=== PATIENT | female | born 1975 | race American Indian/Alaskan Native ===

== ENCOUNTER 2021-07-29 16:49 | Emergency (ER) | payer SELFPAY ==
[2021-07-29 21:08] LABS: Bacteria,Urine 2+ /HPF (Negative); Bilirubin,Urine NEG (Negative); Blood,Urine LG (Negative); Color,Urine Yellow (Yellow); Mucus,Urine 2+ /HPF; Protein,Urine <15 mg/dL mg/dL (Negative)
[2021-07-29 21:10] LABS: HCG Qualitative,Urine Negative (Negative)
--- NOTE | 2021-07-29 21:38 | Emergency Department Report ---
ED General Adult HPI - General Chief complaint: Vaginal Bleeding Stated complaint: BLEEDING Time Seen by Provider: 07/29/21 20:22 Source: patient Mode of arrival: Ambulatory Limitations: No Limitations - History of Present Illness Initial comments: 46-year-old black female presents to the emergency department for evaluation of vaginal bleeding that started 3 days ago. She states that she has not had her. For 9 months, and then 3 days ago she had some abdominal pain and cramping followed by the passage of several large clots and has been having vaginal bleeding since then. She also states that she has had some intermittent nausea. She denies dizziness, fever, vaginal discharge, she states that she has a history of a tubal ligation and does not think that she is but is here for further evaluation. -: Sudden, days(s) (3) Consistency: constant Improves with: none Worsens with: none Associated Symptoms: nausea/vomiting. denies: chest pain, cough, diaphoresis, fever/chills, headaches, loss of appetite, malaise, rash, seizure, shortness of breath, syncope, weakness Treatments Prior to Arrival: none - Related Data Allergies Allergy/AdvReac Type Severity Reaction Status Date / Time Penicillins Allergy Unknown Verified 07/29/21 16:57 ED Review of Systems ROS: Stated complaint: BLEEDING Other details as noted in HPI Comment: All other systems reviewed and negative Constitutional: denies: chills, fever Eyes: denies: eye pain ENT: denies: ear pain Respiratory: denies: cough, shortness of breath Cardiovascular: denies: chest pain, palpitations, dyspnea on exertion, edema, syncope, paroxysmal nocturnal dyspnea Endocrine: no symptoms reported Gastrointestinal: nausea, vomiting. denies: abdominal pain, diarrhea, hematemesis, melena, hematochezia Genitourinary: abnormal menses. denies: urgency, dysuria, frequency, hematuria, discharge Musculoskeletal: denies: back pain, joint swelling Skin: denies: rash, lesions Neurological: denies: headache, weakness, numbness, paresthesias, confusion, abnormal gait Psychiatric: denies: anxiety Hematological/Lymphatic: denies: easy bleeding, easy bruising ED Physical Exam - General Limitations: No Limitations General appearance: in no apparent distress - Head Head exam: Present: atraumatic, normocephalic - Eye Eye exam: Present: normal appearance. Absent: conjunctival injection - Neck Neck exam: Present: normal inspection - Respiratory Respiratory exam: Present: normal lung sounds bilaterally. Absent: respiratory distress, wheezes, rales, rhonchi, chest wall tenderness, accessory muscle use - Cardiovascular Cardiovascular Exam: Present: regular rate - GI/Abdominal GI/Abdominal exam: Present: soft. Absent: distended, tenderness, guarding, rebound, rigid, normal bowel sounds - Extremities Exam Extremities exam: Present: normal inspection, full ROM - Back Exam Back exam: Present: normal inspection, full ROM. Absent: tenderness, CVA tenderness (R), CVA tenderness (L), paraspinal tenderness, vertebral tenderness - Neurological Exam Neurological exam: Present: alert, oriented X3 - Psychiatric Psychiatric exam: Present: normal affect, normal mood - Skin Skin exam: Present: warm, dry, intact, normal color ED Course Vital Signs 07/29/21 07/29/21 16:59 22:19 Temperature 98.3 F Pulse Rate 80 70 Respiratory 18 14 Rate Blood Pressure 122/72 131/74 [Right] O2 Sat by Pulse 100 100 Oximetry ED Medical Decision Making - Medical Decision Making 46-year-old black female presents to the emergency department for evaluation of vaginal bleeding that started 3 days ago. She states that she has not had her. For 9 months, and then 3 days ago she had some abdominal pain and cramping followed by the passage of several large clots and has been having vaginal bleeding since then. She also states that she has had some intermittent nausea. She denies dizziness, fever, vaginal discharge, she states that she has a history of a tubal ligation and does not think that she is but is here for further evaluation. test negative. UA negative for nitrates and leukocyte Estrace. Patient was advised that she is likely just on her menstrual cycle and that she should not consider herself in menopause until she has gone a full year with no menstrual cycle. She was advised to follow-up with [facility] for further evaluation. She verbalized understanding of and agreement with plan of care. Critical care attestation.: If time is entered above; I have spent that time in minutes in the direct care of this critically ill patient, excluding procedure time. ED Disposition Clinical Impression: Menstrual periods, abnormal Disposition: 01 HOME / SELF CARE / HOMELESS Is pt being admited?: No Does the pt Need Aspirin: No Condition: Stable Instructions: Menstruation, Menopause, Abnormal Uterine Bleeding, [id number] Additional Instructions: Follow-up with [facility] or primary care provider for further evaluation. Referrals: KAELYN BRUMFIELD MD [Primary Care Provider] - 3-5 Days Time of Disposition: 21:38
[2021-07-29 22:19] VITALS: BP 131/74
== END 2021-07-29 22:22 | disposition home or self-care (01) ==
LOC: ED 16:49
DX: N92.6 Irregular menstruation, unspecified (principal)
CPT/HCPCS: 81001; 81025; 87076; 87086; 87186; 99283